=== PATIENT | male | born 1960 | race Caucasian/White ===

== ENCOUNTER 2017-06-16 23:13 | Emergency (ER) | payer OTHER ==
[~2017-06-16] VITALS: Ht 167.6 cm; Wt 94.9 kg
[~2017-06-16 23:13] MED LIST: AMOXICILLIN500 M1 PO; FLONASE16 G1 BOTH NARES; LEVOTHYROXINE150 MCG PO; LO-DOSE ASPIRIN81 M1 PO; PREDNISONE20 MG PO; TESSALON200 MG PO
[2017-06-17] MEDS ORDERED: INDOCIN50 MG PO (01:59)
[2017-06-17 02:06] VITALS: BP 166/97
== END 2017-06-17 02:19 | disposition home or self-care (01) ==
LOC: EME 23:13 → EXP 23:13
DX: S93.601A Unspecified sprain of right foot, initial encounter (principal); W20.8XXA Other cause of strike by thrown, projected or falling object, initial encounter
CPT/HCPCS: 73630; 93971; 99281; 99284